=== PATIENT | female | born 1960 | race Caucasian/White ===

== ENCOUNTER 2020-08-31 22:19 | Emergency (ER) | payer MEDICAID ==
[~2020-08-31] VITALS: Ht 160 cm; Wt 75.3 kg
[2020-08-31 22:23] VITALS: BP_SYST 163
--- NOTE | 2020-08-31 22:23 | NUR ---
Patient to ER bed 07 to gown for evaluation. Side rails up. Report given to GELY Pedro
--- NOTE | 2020-08-31 22:30 | NUR ---
Dr. Santizo bedside for pt eval
--- NOTE | 2020-08-31 22:40 | NUR ---
Pt BIB family to ED C/O R Flank pain 12/18, no other complaints noted VSS no s/s of acute distress, Resting on gurney rails up
[2020-08-31] MEDS ORDERED: KETOROLAC TROMETHAMINE 30 MG VIAL IM ONE (22:45)
[2020-08-31 22:52] LABS: BILIRUBIN,URINE NEGATIVE (NEGATIVE); BLOOD, URINE 3+ (NEGATIVE); CLARITY/URINE TURBID (CLEAR); COLOR,URINE YELLOW (YELLOW); GLUCOSE,URINE NEGATIVE (NEGATIVE); KETONES,URINE NEGATIVE (NEGATIVE); LEUKOCYTE ESTERASE ,URINE 1+ (NEGATIVE); NITRITE, URINE NEGATIVE (NEGATIVE); PH,URINE 6.5 (5.0-8.0); PROTEIN URINE 2+ (NEGATIVE); UROBILINOGEN,URINE 0.2 (0.2-1.0)
--- NOTE | 2020-08-31 23:00 | NUR ---
Pt taken to Radiology in stable condition
[2020-08-31 23:15] LABS: BACTERIA,URINE MODERATE /HPF (None Seen); RBC,URINE 50-80 /HPF (0-3)
--- NOTE | 2020-08-31 23:20 | NUR ---
Pt back from Radiology, well tolerated
[2020-09-01 00:10] LABS: CREATININE 0.75 mg/dL (0.55-1.30)
[2020-09-01 00:14] LABS: BASOPHILS % (AUTO) 0.3 % (0.0-2.0); EOSINOPHILS # (AUTO) 0.1 K/uL (0.0-0.4); EOSINOPHILS % (AUTO) 0.9 % (0.0-4.0); HEMATOCRIT 39.8 % (36-48); HEMOGLOBIN 13.3 g/dL (12.0-16.0); LYMPHOCYTES # (AUTO) 0.8 K/uL (1.0-5.5); LYMPHOCYTES % (AUTO) 10.4 % (20.5-51.5); MEAN CORPUSCULAR HEMOGLOBIN 29 pg (27-31); MEAN CORPUSCULAR HGB CONC 33 % (32-36); MEAN CORPUSCULAR VOLUME 87 fL (79.0-98.0); MONOCYTES # (AUTO) 0.3 K/uL (0.0-1.0); NEUTROPHILS # (AUTO) 6.8 K/uL (1.8-7.7); NEUTROPHILS % (AUTO) 84.4 % (40.0-70.0); PLATELET COUNT (AUTO) 291 K/uL (130-430); RED BLOOD CELL COUNT(AUTO) 4.56 MIL/uL (4.2-6.2); RED CELL DISTRIBUTION WIDTH 13.7 % (9.0-15.0); WHITE BLOOD COUNT (AUTO) 8.1 K/uL (4.8-10.8)
[2020-09-01 00:16] LABS: ALBUMIN 3.8 g/dL (3.4-4.8); PROTHROMBIN TIME 10.1 SECS (9.5-12.5); TOTAL BILIRUBIN 0.4 mg/dL (0.0-1.0)
[2020-09-01 00:27] LABS: C-REACTIVE PROTEIN QUANT 0.5 mg/dL (0-0.5)
--- NOTE | 2020-09-01 00:29 | NUR ---
Pt verbalized understanding that she is waiting for Radiology results
[2020-09-01] MEDS ORDERED: NITROFURANTOIN MONOHYD/M-CRYST 100 MG CAPSULE PO ONE ×2 (01:00→01:25)
[2020-09-01] MEDS ORDERED: ONDANSETRON 4 MG ODT TAB PO ONE (01:00)
[2020-09-01] MEDS ORDERED: PRO40 PO (01:14)
[2020-09-01] MEDS ORDERED: ONDA-8 TL (01:14)
[2020-09-01] MEDS ORDERED: NITR-85 PO (01:14)
--- NOTE | 2020-09-01 01:25 | NUR ---
VSS no s/s of acute distress Resting on gurney rails up
--- NOTE | 2020-09-01 02:00 | NUR ---
Dr. Xavier bedside for pt update
[2020-09-01 02:20] VITALS: BP_SYST 163
--- NOTE | 2020-09-01 02:20 | NUR ---
Patient given written and verbal discharge instructions and verbalizes understanding. ER MD discussed with patient the results and treatment provided. Patient in stable condition. ID arm band removed. Rx of Macrobid, Zofran and Protonix given. Patient educated on pain management and to follow up with PMD. Pain Scale 0/10 Opportunity for questions provided and answered. Medication side effect fact sheet provided.
== END 2020-09-01 02:20 | disposition home or self-care (01) ==
LOC: SED 22:19
DX: R10.9 Unspecified abdominal pain (principal)
CPT/HCPCS: 36415; 74176; 76376; 80053; 81000; 82150; 83605; 83615; 83690; 84703; 85025; 85610; 85730; 86140; 87086; 96372; 99284; J1885; Q0162